=== PATIENT | female | born 1995 | race Caucasian/White ===

== ENCOUNTER 2021-01-12 22:40 | Emergency (ER) | payer OTHER ==
--- NOTE | 2021-01-12 22:57 | ED Physician Documentation ---
PD HPI HEAD INJURY - Stated complaint Stated Complaint: HEAD INJ - History obtained from History obtained from: Patient - History of Present Illness Mechanism of head injury: Fell (she states she fell backward from almost standing position and struck back of head. No LOC. Some headache at the time, but awoke next morning with general headache, nausea, light sensitivity, some lightheadedness. Symptoms worse with work (computer screen), visual video, and with activity.) Timing - onset: How many days ago (4) Location of injury: Back Quality of pain: Pain, Throbbing, Aching Associated symptoms: Nausea / vomiting (nausea without vomiting). No: LOC, AMS (able to converse and think appropriately, but gets worse headache with the activity.), Amnesia Symptoms worsen with: Movement, Light, Other (activity and visual stimulation (computer at work largely).) Contributing factors: No: Anticoagulated, Intoxicated Similar symptoms before: Diagnosis (had migraines at times years ago, but had not had any for few years. current symptoms somewhat like that.) Recently seen: Not recently seen Review of Systems Constitutional: denies: Fever, Chills Nose: denies: Rhinorrhea / runny nose, Congestion Throat: denies: Sore throat Respiratory: denies: Cough GI: reports: Nausea. denies: Abdominal Pain, Vomiting, Diarrhea Skin: denies: Abrasion (s), Laceration (s) Neurologic: reports: Headache. denies: Focal weakness, Numbness, Altered mental status PD PAST MEDICAL HISTORY - Past Medical History Cardiovascular: None Respiratory: None Neuro: Migraines Endocrine/Autoimmune: None - Present Medications Home Medications: Ambulatory Orders Medication Instructions Recorded Confirmed Naproxen Sodium [Naprelan] 375 mg PO BID PRN #20 tab 01/13/21 Ondansetron Odt [Zofran] 4 mg TL Q6H PRN #10 tablet 01/13/21 dexAMETHasone [Decadron] 4 mg PO DAILY #5 tablet 01/13/21 - Allergies Allergies/Adverse Reactions: Allergies Allergy/AdvReac Type Severity Reaction Status Date / Time No Known Drug Allergies Allergy Verified 01/12/21 22:58 PD ED PE NORMAL - Vitals Vital signs reviewed: Yes - General General: Alert and oriented X 3, No acute distress, Well developed/nourished - HEENT HEENT: Atraumatic - Neck Neck: Supple, no meningeal sign, No adenopathy - Cardiac Cardiac: RRR, No murmur - Respiratory Respiratory: Clear bilaterally - Derm Derm: Normal color, Warm and dry - Neuro Neuro: Alert and oriented X 3, [employer] 2-12 intact, No motor deficit, No sensory deficit, Normal speech Results - Vitals Vitals: Vital Signs - 24 hr 01/12/21 01/13/21 01/13/21 22:54 00:15 00:50 Temperature 37.1 C Heart Rate 98 81 Respiratory 14 15 15 Rate Blood Pressure 159/90 H 137/69 H O2 Saturation 100 99 01/13/21 00:55 Temperature Heart Rate Respiratory 15 Rate Blood Pressure O2 Saturation Oxygen O2 Source Room air - Rads (name of study) head CT Radiology: Prelim report reviewed, See rad report PD MEDICAL DECISION MAKING - ED course Complexity details: reviewed results, re-evaluated patient (headache lessened with meds here. Still moderate headache. Discussed with her that opioid meds can prolong concussive symtpoms so will be minimal with these. But may need to use some since migraine headache as well. ), considered differential (sounds like concussive symptoms, though impact may have triggered a migraine as well. Overlapping of symptoms. ), d/w patient Departure - Departure Disposition: 01 Home, Self Care Clinical Impression: Accidental fall Qualifiers: Encounter type: initial encounter Qualified Code(s): W19.XXXA - Unspecified fall, initial encounter Mild concussion Qualifiers: Encounter type: initial encounter Loss of consciousness presence/duration: without LOC Qualified Code(s): S06.0X0A - Concussion without loss of consciousness, initial encounter Migraine Qualifiers: Migraine type: without aura Status migrainosus presence: without status migrainosus Intractability: not intractable Qualified Code(s): G43.009 - Migraine without aura, not intractable, without status migrainosus Condition: Stable Record reviewed to determine appropriate education?: Yes Instructions: ED Concussion Follow-Up: JILLIAN Mireles [Provider Group] Prescriptions: dexAMETHasone [Decadron] 4 mg PO DAILY #5 tablet Naproxen Sodium [Naprelan] 375 mg PO BID PRN #20 tab PRN Reason: Pain Ondansetron Odt [Zofran] 4 mg TL Q6H PRN #10 tablet PRN Reason: Nausea / Vomiting Comments: Stop work for 2 to 3 days. Light activity as comfortable with symptoms. Avoid visual stimulation such as computer use TV and phone usage. Avoid exertional activity for a few days as well. Commonly concussion symptoms will decrease over several days. This can be aided with some anti-inflammatories. Add ondansetron nausea medicine if needed. Recheck if not improved well over the next few days. Sometimes concussion symptoms can take a few weeks of graded increased activity. Good website with information is the CDC's website called Heads Up that talks about progressive activity with concussion. Forms: Activity restrictions Discharge Date/Time: 01/13/21 01:05
[2021-01-12] MEDS ORDERED: KETOROLAC 15 MG/ML VIAL IM STA (23:12)
[2021-01-12] MEDS ORDERED: ONDANSETRON ODT 4 MG TABLET TL STA (23:12)
[2021-01-12] MEDS ORDERED: SUMAtriptan 25 MG TABLET PO STA (23:12)
[2021-01-13] MEDS ORDERED: HYDROcod/ACETAM 5/325 MG TABLET PO STA (00:49)
[2021-01-13] MEDS ORDERED: HYDROcod/ACET 5/325 Prepack 4 PO STA (00:49)
[2021-01-13 00:51] VITALS: BP 137/69
--- NOTE | 2021-01-13 07:14 | CT Report ---
PROCEDURE: HEAD WO INDICATIONS: head injury 3 days ago, still headache TECHNIQUE: Noncontrast 4.5 mm thick angled axial sections acquired from the foramen magnum to the vertex. For r adiation dose reduction, the following was used: automated exposure control, adjustment of mA and/or kV according to patient size. COMPARISON: None. FINDINGS: Image quality: Excellent. CSF spaces: Basal cisterns are patent. No extra-axial fluid collections. Ventricles are normal in size and shape. Brain: No midline shift. No intracranial masses or hemorrhage. Rivera-white matter interface is norm al. Skull and face: Calvarium and visualized facial bones are intact, without suspicious lesions. Sinuses: Visualized sinuses and mastoids are clear. IMPRESSION: No trauma found. Reviewed by: Franco Romo MD on 01/13/2021 7:12 AM PDT Approved by: Franco Romo MD on 01/13/2021 7:12 AM PDT Station ID: [id number]
== END 2021-01-13 01:05 | disposition home or self-care (01) ==
LOC: EDBD → ED 22:40
DX: S06.0X0A Concussion without loss of consciousness, initial encounter (principal); W19.XXXA Unspecified fall, initial encounter; G43.009 Migraine without aura, not intractable, without status migrainosus
CPT/HCPCS: 70450; 96372; 99284; A9270; Q0162